=== PATIENT | male | born 1960 | race Caucasian/White ===

== ENCOUNTER 2016-11-22 21:32 | Emergency (ER) | payer SELFPAY ==
[2016-11-22 21:40] VITALS: BP 121/76
[2016-11-22] MEDS ORDERED: Aspirin EC Low Dose* 81 MG TAB.EC PO ONE (22:18)
--- NOTE | 2016-11-22 22:35 | UC ---
London Gupta Benjamin, scribed for John Yeung MD on 11/22/16 at 2209 . Cardiac HPI - HPI Summary HPI Summary: 56yo male c/o chest tightness since 2 days ago. Pt also reports sharp shooting pain in his right forearm. Pt also reports having unusual BP the past day. last morning, his diastolic pressure was in 50s, which is lower than his baseline, and last night, diastolic pressure was in the 90s, which is higher than his baseline. Pt is a recovering crystal meth addict and there is a FHx of HI. Pt also reports diaphoresis, but denies SOB. - History of Current Complaint Chief Complaint: UCChestPain Stated Complaint: CHEST PAIN Time Seen by Provider: 11/22/16 21:39 Hx Obtained From: Patient Onset/Duration: Lasting Days, Still Present Timing: Intermittent Episodes Lasting: Initial Severity: Moderate Current Severity: Moderate Chest Pain Location: Mid Sternal Character: Tightness Aggravating: Nothing Alleviating: Nothing Associated Signs & Symptoms: Positive: Diaphoresis - Allergy/Home Medications Allergies/Adverse Reactions: Allergies Allergy/AdvReac Type Severity Reaction Status Date / Time Aripiprazole [From Abilify] Allergy Difficulty Verified 11/22/16 21:40 Swallowing Lamotrigine Allergy See Comment Verified 05/07/15 11:29 Niacin AdvReac Rash Verified 05/07/15 11:29 Home Medications: Home Medications Melatonin 1 mg PO BEDTIME 11/22/16 [History Confirmed 11/22/16] PMH/Surg Hx/FS Hx/Imm Hx - Surgical History Surgical History: Yes Surgery Procedure, Year, and Place: Thoracic Syndrome (per patient). Arm surgery (per patient) - Social History Alcohol Use: Rare Substance Use Type: None, Synthetic Drugs Substance Use Comment - Amount & Last Used: Injects meth, last use 01/30 0900 Smoking Status (MU): Never Smoked Tobacco - Immunization History Most Recent Influenza Vaccination: 2015 Most Recent Tetanus Shot: current Most Recent Pneumonia Vaccination: 2015 Review of Systems Constitutional: Other - diaphoresis. Skin: Negative Eyes: Negative ENT: Negative Respiratory: Negative Cardiovascular: Chest Pain - tightness, radiates to RUE Gastrointestinal: Negative Genitourinary: Negative Motor: Negative Neurovascular: Negative Musculoskeletal: Negative Neurological: Negative Psychological: Negative All Other Systems Reviewed And Are Negative: Yes Physical Exam Triage Information Reviewed: Yes Appearance: Well-Appearing, No Pain Distress, Well-Nourished Vital Signs: Initial Vital Signs Temp 98.8 F 11/22/16 21:36 Pulse 88 11/22/16 21:36 Resp 20 11/22/16 21:36 BP 121/76 11/22/16 21:36 Pulse Ox 97 11/22/16 21:36 Vital Signs Reviewed: Yes Eyes: Positive: Conjunctiva Clear ENT: Positive: Normal ENT inspection, Hearing grossly normal Neck: Positive: Supple, Nontender Respiratory: Positive: Lungs clear, Normal breath sounds, No respiratory distress Cardiovascular: Positive: RRR, No Murmur, Pulses Normal Abdomen Description: Positive: Nontender, Soft Bowel Sounds: Positive: Present Musculoskeletal: Positive: Strength Intact, ROM Intact Neurological: Positive: Alert, Muscle Tone Normal Psychological: Positive: Age Appropriate Behavior Skin: Positive: Other - diaphoretic Diagnostics - EKG Cardiac Rate: NL - 84bpm Cardiac Rhythm: Sinus: Normal - normal sinus. Taken at 21:30. Ectopy: None ST Segment: Normal - Assessment/Plan Course Of Treatment: Reviewed pts medication and allergy lists. Blood pressure noted. Discussed with Phys. Mitali Licensed Direct Entry Midwife (ED) at 22:16 for transfer via private car. PATIENT GIVE ASA 324MG PO IN CLINIC. NO CHEST PAIN IN CLINIC. EKG WITHOUT ISCHEMIC CHANGES. PLANNED TRANSFER TO EMERGENCY DEPARTMENT BY AMBULANCE. PATIENT DECLINED TRANSFER BY AMBULANCE. HE ALSO DECLINED GOING TO THE EMERGENCY DEPARTMENT. HE STATES HE WILL SEE HIS DOCTOR TOMORROW. HE SIGNED THE AMA FORM. I TOLD HIM HE SHOULD CALL 911 IF HE HAS ANY MORE CHEST PAIN. - Clinical Impression Provider Diagnoses: CHEST PAIN, SIGNS OUT AMA, DECLINES GOING TO THE EMERGENCY DEPARTMENT. Discharge - Discharge Plan Condition: Good Disposition: AGAINST MEDICAL ADVICE Patient Education Materials: Chest Pain (ED) Referrals: Autumn Mike MD [Primary Care Provider] - Additional Instructions: GO DIRECTLY TO THE EMERGENCY DEPARTMENT. CALL 911 IF YOU NEED ASSISTANCE. The documentation as recorded by the London samuel Benjamin accurately reflects the service I personally performed and the decisions made by me, John Yeung MD.
== END 2016-11-22 22:40 | disposition left against medical advice (07) ==
LOC: UCEAST 21:32
DX: R07.89 Other chest pain (principal); R61 Generalized hyperhidrosis
CPT/HCPCS: 93005; 99212; A9270-GY; G0463